=== PATIENT | male | born 1990 | race Caucasian/White ===

== ENCOUNTER 2020-11-29 18:31 | Emergency (ER) | payer OTHER ==
[~2020-11-29] VITALS: Ht 170.2 cm; Wt 97.5 kg
[2020-11-29 18:33] VITALS: BP 147/97
[2020-11-29] MEDS ORDERED: ALBUTEROL SULFATE/IPRATROPIU 3 ML SOL IH ONE (18:45)
[2020-11-29 19:09] LABS: BASOPHILS # (AUTO) 0.1 K/uL (0.00-0.22); BASOPHILS % (AUTO) 0.8 % (0.0-2.0); EOSINOPHILS # (AUTO) 0.4 K/uL (0-0.4); EOSINOPHILS % (AUTO) 4.2 % (0.0-4.0); HEMATOCRIT 44.7 % (36-52); HEMOGLOBIN 15.1 g/dL (12.0-18.0); LYMPHOCYTES # (AUTO) 2.5 K/uL (2.0-11.5); LYMPHOCYTES % (AUTO) 24.9 % (20.5-51.1); MEAN CORPUSCULAR HEMOGLOBIN 29 pg (27-31); MEAN CORPUSCULAR HGB CONC 34 g/dL (33-37); MEAN CORPUSCULAR VOLUME 84.4 fL (80-94); MONOCYTES # (AUTO) 0.8 K/uL (0.8-1.0); MONOCYTES % (AUTO) 7.7 % (1.7-9.3); NEUTROPHILS # (AUTO) 6.1 K/uL (1.8-7.7); NEUTROPHILS % (AUTO) 62.4 % (42.2-75.2); PLATELET COUNT (AUTO) 248 K/uL (140-450); RED CELL DISTRIBUTION WIDTH 12.9 % (11.6-13.7); WHITE BLOOD COUNT (AUTO) 9.8 K/uL (4.8-10.8)
[2020-11-29 19:20] LABS: ANION GAP 17.9 (8-16); CARBON DIOXIDE 22.6 mmol/L (21-32); CREATININE 1.3 mg/dL (0.6-1.3); POTASSIUM 3.5 mmol/L (3.5-5.1)
[2020-11-29] MEDS ORDERED: NACL 0.9% 1,000 ML IV ONE (19:50)
[2020-11-29] MEDS ORDERED: ALBU0.0912 IH ×2 (22:11→22:52)
[2020-11-29 22:52] VITALS: BP 131/82
== END 2020-11-29 22:52 | disposition home or self-care (01) ==
LOC: MED 18:31
DX: T75.4XXA Electrocution, initial encounter (principal); R07.9 Chest pain, unspecified; D86.0 Sarcoidosis of lung; R42 Dizziness and giddiness; Z88.0 Allergy status to penicillin; Y35.831A Legal intervention involving a conducted energy device, law enforcement official injured, initial encounter; Y93.89 Activity, other specified; Y92.89 Other specified places as the place of occurrence of the external cause; Y99.8 Other external cause status
CPT/HCPCS: 36415; 71045; 80048; 84484; 85025; 93005; 94640; 96360; 99285